=== PATIENT | female | born 1995 | race Caucasian/White ===

== ENCOUNTER 2024-11-24 22:08 | Emergency (ER) | payer OTHER ==
[~2024-11-24] VITALS: Ht 157.5 cm; Wt 125.0 kg
[2024-11-24 22:15] VITALS: TEMP 36.8; O2SAT 99
[2024-11-24] MEDS: KETOROLAC 15MG/ML VIAL IM ONE (23:49)
[2024-11-25] MEDS ORDERED: NAPR-1176 MT (00:38)
[2024-11-25] MEDS ORDERED: LIDO700A15 TP (00:38)
[2024-11-25] MEDS ORDERED: CYCL5TAB3 MT (00:38)
[2024-11-25 01:14] VITALS: BP 128/67; PULSE 80; RESP 16; O2SAT 96
== END 2024-11-25 01:15 | disposition home or self-care (01) ==
LOC: ER 22:08
DX: S09.90XA Unspecified injury of head, initial encounter (principal); M25.512 Pain in left shoulder; W22.8XXA Striking against or struck by other objects, initial encounter; Y93.89 Activity, other specified; Y92.410 Unspecified street and highway as the place of occurrence of the external cause; Y99.8 Other external cause status
CPT/HCPCS: 99285; 70450; 71045; 73030; 96372; J1885